=== PATIENT | male | born 1990 | race Caucasian/White ===

== ENCOUNTER 2024-01-15 23:52 | Emergency (ER) | payer MEDICAID ==
[~2024-01-15] VITALS: Ht 165.1 cm; Wt 93.7 kg
[2024-01-16 00:03] VITALS: TEMP 98.9; O2SAT 98
[2024-01-16 00:33] LABS: BASOPHILS % 0.7 % (0.0-2.0); EOSINOPHILS % 0.5 % (0.0-5.0); HEMATOCRIT. 43.1 % (42.0-52.0); HEMOGLOBIN. 14.8 g/dL (14.0-18.0); LYMPHOCYTES % 22.9 % (20.0-50.0); MEAN CORPUSCULAR HEMOGLOBIN 27.8 pg (28.0-32.0); MEAN CORPUSCULAR HGB CONC 34.4 g/dL (31.0-37.0); MEAN CORPUSCULAR VOLUME 80.9 fL (80.0-94.0); MEAN PLATELET VOLUME 8.4 fl (7.4-10.4); MONOCYTES % 7.4 % (2.0-8.0); NEUTROPHILS % 68.5 % (40.0-76.0); PLATELET 336 x1000/uL (130-400); RED BLOOD CELL COUNT 5.33 mill/uL (4.7-6.1); RED CELL DISTRIBUTION WIDTH 14.3 % (11.6-14.6); WHITE BLOOD COUNT 12.8 x1000/uL (4.5-11.0)
[2024-01-16 00:40] LABS: CARBON DIOXIDE 24 mEq/L (21-32); CHLORIDE 105 mEq/L (98-107); POTASSIUM 3.4 mEq/L (3.5-5.1); SODIUM 139 mEq/L (136-145)
[2024-01-16 00:40] LABS: CLARITY URINE TURBID (CLEAR); COLOR URINE YELLOW (YELLOW); GLUCOSE URINE NEGATIVE (NEGATIVE); KETONES URINE NEGATIVE (NEGATIVE); LEUKOCYTE ESTERASE URINE NEGATIVE (NEGATIVE); NITRITE URINE NEGATIVE (NEGATIVE); OCCULT BLOOD URINE NEGATIVE (NEGATIVE); PH URINE >=9.0 (4.5-8.0); PROTEIN URINE NEGATIVE (NEGATIVE); SPECIFIC GRAVITY URINE 1.021 (1.005-1.030); UROBILINOGEN URINE 0.2 E.U./dL (0.2-1.0)
[2024-01-16 00:41] LABS: CALCIUM 9.7 mg/dL (8.7-10.4)
[2024-01-16 00:46] LABS: GLUCOSE 120 mg/dL (70-105); UREA NITROGEN BLOOD 14 mg/dL (9-23)
[2024-01-16 00:47] LABS: ALANINE AMINOTRANSFERASE 40 IU/L (10-49); ALBUMIN 4.8 g/dL (3.2-4.8); ASPARTATE AMINOTRANSFERASE 25 IU/L (<34)
[2024-01-16 00:48] LABS: BILIRUBIN TOTAL 0.3 mg/dL (0.1-1.0); PROTEIN TOTAL 7.5 g/dL (6.0-8.3); TROPONIN I HIGH SENSITIVITY < 4 ng/L (3.0-53)
[2024-01-16 00:54] LABS: AMORPHOUS SEDIMENT URINE 1+ /lpf; BACTERIA URINE TRACE; RBC URINE 0-2 /hpf (0-2); SQUAMOUS EPITHELIAL CELL URINE RARE /lpf (RARE/1+); WBC URINE 0-2 /hpf (0-2)
[2024-01-16] MEDS: KETOROLAC 30MG/ML VIAL IM NR (01:59)
[2024-01-16] MEDS: DICYCLOMINE 10 MG/5 ML ORAL SYR PO NR (02:00)
[2024-01-16] MEDS: FAMOTIDINE 20MG TABLET PO NR (02:00)
[2024-01-16] MEDS: POTASSIUM CHLORIDE 20MEQ TABLET SR PO NR (02:00)
[2024-01-16] MEDS: MAGNESIUM/ALUMINUM HYDROXIDE/SIMETHICONE 30ML UDC PO NR (02:01)
[2024-01-16] MEDS: MAGNESIUM/ALUMINUM HYDROXIDE/SIMETHICONE 30ML UDC PO ONE (02:31)
[2024-01-16] MEDS: DICYCLOMINE 10 MG/5 ML ORAL SYR PO ONE (02:31)
[2024-01-16] MEDS: ONDANSETRON HCL 4MG/2ML INJ IV ONE (02:32)
[2024-01-16] MEDS: FAMOTIDINE 20MG/2ML VIAL IV ONE (02:33)
[2024-01-16] MEDS: SODIUM CHLORIDE 0.9% 1,000 ML IV ONE (02:33)
[2024-01-16] MEDS ORDERED: ONDA4TAB11 PO (02:54)
[2024-01-16 03:15] VITALS: BP 137/65; PULSE 73; RESP 18
== END 2024-01-16 03:16 | disposition home or self-care (01) ==
LOC: ER 23:52
DX: K29.70 Gastritis, unspecified, without bleeding (principal)
CPT/HCPCS: 99285; 80053; 81003; 83690; 85025; 84484; 36415; 71045; 93005; 96361; 96372; 96374; 96375; J3490; J1885; J2405; J7030; Z7610 ×2